=== PATIENT | female | born 1965 | race Caucasian/White ===

== ENCOUNTER → 2025-01-05 07:40 | Outpatient (REF) | payer OTHER, SELFPAY | LOC: RAD 07:40 | PROVIDERS: ATTENDING PHYSICIAN Family Medicine; REFERRING PHYSICIAN Surgery Vascular Surgery | DX: M79.669 Pain in unspecified lower leg (principal) | CPT/HCPCS: 93922 ==

== ENCOUNTER → 2025-04-16 17:23 | Outpatient (REF) | payer OTHER, SELFPAY | LOC: RAD 17:23 | PROVIDERS: ATTENDING PHYSICIAN Surgery Vascular Surgery; FAMILY PHYSICIAN Family Medicine | DX: R20.0 Anesthesia of skin (principal) | CPT/HCPCS: 93970 ==